=== PATIENT | male | born 1995 | race Caucasian/White ===

== ENCOUNTER 2024-10-17 18:08 | Outpatient (CLI) | payer OTHER, SELFPAY ==
[2024-10-17 18:47] LABS: Lab Add On Test New Spec Needed
== END 2024-10-17 18:09 | disposition home or self-care (01) ==
PROVIDERS: PCP Family Medicine; Visit Provider Family Medicine
DX: Z00.01 Encounter for general adult medical examination with abnormal findings (principal); R03.0 Elevated blood-pressure reading, without diagnosis of hypertension; Z83.2 Family history of diseases of the blood and blood-forming organs and certain disorders involving the immune mechanism; Z13.6 Encounter for screening for cardiovascular disorders
CPT/HCPCS: 80048; 82465; 83718; 85520; 85525; 85598; 85610; 85613; 85670; 85730; 86146; 86147